=== PATIENT | male | born 1990 | race Caucasian/White ===

== ENCOUNTER 2018-07-23 20:29 | Emergency (ER) | payer OTHER ==
[~2018-07-23] VITALS: Ht 170.2 cm; Wt 77.6 kg
[2018-07-23] MEDS ORDERED: ONDANSETRON ODT 4 MG TAB.RAPDIS PO ONE (20:45)
[2018-07-23] MEDS ORDERED: ONDA4TAB7 PO (21:41)
[2018-07-23] MEDS ORDERED: IV NORMAL SALINE 1,000ML 1,000 ML IV ONE (21:45)
--- NOTE | 2018-07-23 21:45 | ED.ADGEN ---
Adult General Chief Complaint Chief Complaint Vomiting HPI HPI 27 years old male presented to the emergency department with vomiting and diarrhea he stated that vomiting started first vomited 14 times later he started expressing diarrhea described as watery diarrhea no fever no chills also complaining of body aches Review of Systems Review of Systems Constitutional: Denies fever or chills [] Eyes: Denies change in visual acuity, redness, or eye pain [] HENT: Denies nasal congestion or sore throat [] Respiratory: Denies cough or shortness of breath [] Cardiovascular: No additional information not addressed in HPI [] GI: Denies abdominal pain, nausea, vomiting, bloody stools or diarrhea [] : Denies dysuria or hematuria [] Current Medications Current Medications Current Medications Medications (Trade) Dose Ordered Sig/Jimmie Start Time Stop Time Status Last Admin Dose Admin Ondansetron HCl (Zofran Odt) 4 mg 1X ONCE 07/23/18 20:45 07/23/18 21:25 DC 07/23/18 21:51 4 MG Ondansetron HCl (Zofran) 4 mg 1X ONCE 07/23/18 22:00 07/23/18 22:01 DC 07/23/18 21:56 4 MG Sodium Chloride 1,000 ml @ 1,000 mls/hr 1X ONCE 07/23/18 21:45 07/23/18 22:44 07/23/18 21:51 1,000 MLS/HR Allergies Allergies Allergies Coded Allergies Type Severity Reaction Last Updated Verified No Known Drug Allergies 07/23/18 No Physical Exam Physical Exam Constitutional: Well developed, well nourished, no acute distress, non-toxic appearance. [] HENT: Normocephalic, atraumatic, bilateral external ears normal, oropharynx moist, no oral exudates, nose normal. [] Eyes: PERRLA, EOMI, conjunctiva normal, no discharge. [] Neck: Normal range of motion, no tenderness, supple, no stridor. [] Cardiovascular:Heart rate regular rhythm, no murmur [] Lungs & Thorax: Bilateral breath sounds clear to auscultation [] Abdomen: Bowel sounds normal, soft, no tenderness, no masses, no pulsatile masses. [] Skin: Warm, dry, no erythema, no rash. [] Current Patient Data Lab Results Laboratory Tests Test 07/23/18 21:17 07/23/18 21:35 Influenza Type A (Rapid) Negative (NEGATIVE) Influenza Type B (Rapid) Negative (NEGATIVE) Sodium Level 143 mmol/L (136-145) Potassium Level 3.8 mmol/L (3.5-5.1) Chloride Level 103 mmol/L (98-107) Carbon Dioxide Level 28 mmol/L (21-32) Anion Gap 12 (6-14) Blood Urea Nitrogen 16 mg/dL (8-26) Creatinine 1.1 mg/dL (0.7-1.3) Estimated GFR (Cockcroft-Gault) 81.6 Glucose Level 91 mg/dL (70-99) Calcium Level 9.7 mg/dL (8.5-10.1) EKG EKG [] Radiology/Procedures Radiology/Procedures [] Course & Med Decision Making Course & Med Decision Making Pertinent Labs and Imaging studies reviewed. (See chart for details) [] Final Impression Final Impression [] Problems: (1) Gastroenteritis Dragon Disclaimer Dragon Disclaimer This electronic medical record was generated, in whole or in part, using a voice recognition dictation system. ABHINAV COY MD Jul 23, 2018 21:44
[2018-07-23] MEDS ORDERED: ONDANSETRON PF 4 MG/2 ML VIAL. ONE (21:47)
[2018-07-23] MEDS ORDERED: ONDANSETRON PF 4 MG/2 ML VIAL. IV ONE (22:00)
[2018-07-23 22:03] LABS: INFLUENZA A PATIENT NEGATIVE (NEGATIVE); INFLUENZA B PATIENT NEGATIVE (NEGATIVE)
[2018-07-23 22:10] LABS: CALCIUM 9.7 mg/dL (8.5-10.1); CREATININE 1.1 mg/dL (0.7-1.3); GFR 81.6; POTASSIUM 3.8 mmol/L (3.5-5.1)
[2018-07-23 22:50] VITALS: BP 122/68
[2018-07-23] MEDS ORDERED: ONDANSETRON 4MG ODT 4TABLET STARTPACK. PO ONE ×2 (22:53→23:00)
== END 2018-07-23 22:55 | disposition home or self-care (01) ==
LOC: ER 20:29
DX: K52.9 Noninfective gastroenteritis and colitis, unspecified (principal)
CPT/HCPCS: 36415; 80048; 87804; 96361; 96374; 99284; J2405; Q0162; J7030